=== PATIENT | male | born 1975 | race African-American/Black ===

== ENCOUNTER 2019-06-21 09:24 | Observation (INO) ==
[2019-06-21] MEDS ORDERED: ZOFRAN IV ONE (09:47)
[2019-06-21] MEDS ORDERED: MORPHINE IV ONE (09:47)
[2019-06-21] MEDS ORDERED: NS 1,000 ML IV ONE ×2 (09:47→13:36)
[2019-06-21 11:31] LABS: BILIRUBIN URINE NEGATIVE (NEGATIVE); BLOOD URINE NEGATIVE (NEGATIVE); CLARITY CLEAR (CLEAR); COLOR YELLOW; GLUCOSE URINE NEGATIVE (NEGATIVE); KETONE URINE NEGATIVE (NEGATIVE); LEUKOCYTES URINE NEGATIVE (NEGATIVE); NITRITE URINE NEGATIVE (NEGATIVE); SP GRAVITY URINE 1.015; UROBILINOGEN URINE NORMAL
[2019-06-21 11:33] LABS: BASO# 0.03 X1000 (0.0-0.2); BASO% 0.3 % (0.0-0.8); EOS# 0.14 X1000 (0.0-0.7); EOS% 1.3 % (0.0-10.0); HEMATOCRIT 31.8 % (42.0-52.0); HEMOGLOBIN 10.1 g/dL (14.0-18.0); IMM GRAN# 0.01 X1000 (0.0-0.04); IMM GRAN% 0.1 % (0.0-0.5); LYMPH# 1.01 X1000 (1.2-3.4); MCH 26.1 PG (27-31); MCHC 31.8 g/dL (33-37); MCV 82.2 FL (81-99); MONO# 0.86 X1000 (0.11-0.59); MONO% 7.7 % (1.7-9.3); NEUT# 9.13 X1000 (1.4-6.5); NEUT% 81.6 % (42.2-75.2); PLT 398 X1000 (130-400); RBC 3.87 XMIL (4.7-6.1); RDW 14.3 % (11.5-14.5); WBC 11.18 X1000 (4.8-10.8)
[2019-06-21 11:46] LABS: AGAP 13; ALBUMIN 3.8 g/dL (3.5-5.0); ALKALINE PHOSPHATASE 84 U/L (32-122); BUN 66 mg/dL (8-22); CHLORIDE 101 mmol/L (98-107); COSMO 295; CREATININE 3.1 mg/dL (0.7-1.2); ESTIMATED GFR 22; GLUCOSE 229 mg/dL (70-104); GOT 18 U/L (10-34); GPT 20 U/L (10-44); POTASSIUM 5.3 mmol/L (3.5-5.1); SODIUM 134 mmol/L (136-145); TCO2 20 mmol/L (25-35); TOTAL BILIRUBIN < 0.15 mg/dL (0.20-1.00)
[2019-06-21 11:49] LABS: LIPASE 683 U/L (13-60)
[2019-06-21 12:11] LABS: URINE BACTERIA 1+ /HFP; URINE EPITHELIAL CELLS <10 /HPF (<10); URINE SOURCE CLEAN CATCH
--- NOTE | 2019-06-21 12:42 | Diag Imaging Result Doc PS360 ---
EXAM: CT ABDOMEN/PELVIS W/O CONTRAST INDICATION: abd pain TECHNIQUE: This exam was performed using automated exposure control, adjustment of mA or kV according to patient size, and/or use of iterative reconstruction technique. COMPARISON: Images from a CT-guided renal biopsy dated 04/08/2018. FINDINGS: There is mild subsegmental atelectasis at the lung bases. There has been a prior cholecystectomy. The liver, spleen, pancreas, and adrenal glands are unremarkable. There is stable chronic perinephric renal stranding, which is often associated with chronic renal insufficiency. The kidneys are unremarkable, otherwise. Urinary bladder is unremarkable. The appendix is normal. There is no evidence of bowel wall thickening or bowel obstruction. The remainder of the GI tract is grossly unremarkable. No focal inflammatory changes, free abdominal gas, or free fluid is identified. IMPRESSION: Stable bilateral chronic perinephric stranding as described. No evidence of acute pathology by unenhanced CT. Electronically signed by Mino Rodrigues 06/21/2019 12:39 PM
[2019-06-21] MEDS ORDERED: ZOFRAN IV PRN (13:56)
[2019-06-21 14:25] LABS: HEMOGLOBIN A1C 7.9 % (4.8-6.0)
[2019-06-21] MEDS: NS 1,000 ML IV SCH ×2 (15:03→23:35)
[2019-06-21] MEDS: MORPHINE IV PRN ×2 (15:45→20:28)
[2019-06-21] MEDS: HUMULIN R (PARKWAY) SUBQ SCH ×2 (16:55→21:17)
--- NOTE | 2019-06-21 17:33 | HISTORY AND PHYSICAL ---
PRIMARY CARE PROVIDER: Sherry Padilla. CHIEF COMPLAINT: Epigastric pain with nausea for 4 days worse after eating. HISTORY OF PRESENT ILLNESS: Mr. Elsie Trivedi is a 43-year-old male he is in no acute distress, he is able answer questions appropriately. He states he has medical history of diabetes since age of 30, CKD stage 3, anemia, low vitamin D deficiency, hyperlipidemia and obesity presents here with complaints of epigastric pain with nausea for 4 days, he says it radiates into his back, it is worse after eating but otherwise no other complaints. Imaging of the pelvic and abdominal CT essentially said the pancreas was unremarkable but laboratory data that was obtained shows amylase of 476 and lipase of 683, also he does have signs of acute pancreatitis the triglycerides are only 171, he is a non alcoholic so he is not a drinker so causes really unclear at this time but will give him IV fluids and p.o. clear liquids. Will recheck amylase, lipase in the morning and see if his abdominal pain improves. PAST MEDICAL HISTORY: 1. CKD stage 3. 2. Hypertension. 3. Anemia. 4. Low vitamin D. 5. Erectile dysfunction. 6. GERD history. 7. Hyperlipidemia. 8. Diabetes mellitus type 2 p.o. medication dependent since age of 30. 9. Morbid obesity with a BMI 40.5. SURGICAL HISTORY: 1. Biopsy of kidney last year which March 2018 which showed kidney disease is due to diabetes. 2. Cholecystectomy. SOCIAL HISTORY: Quit smoking in 2009, prior to that he smoked less than a half pack per day for 20 years. He denies alcohol or illicit drug use. 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 FAMILY HISTORY: Mother had stroke at 57, she also had diabetes. Father had hyperactive thyroid. ALLERGIES: No known drug allergies. HOME MEDICATIONS: 1. Amaryl 40 mg p.o. twice daily. 2. Hydralazine 50 mg p.o. twice a day. 3. Januvia 100 mg p.o. daily. 4. Losartan hydrochlorothiazide 1 tab p.o. daily. 5. Simvastatin 40 mg p.o. nightly. 6. Sodium bicarbonate 325 mg p.o. twice a day this originally supposed to be t.i.d. but he says he only takes it twice a day. 7. Spironolactone 25 mg p.o. daily. 8. Verapamil 240 mg p.o. twice daily. REVIEW OF SYSTEMS: Fourteen point review of systems are complete and all are negative except for those mentioned above HPI. PHYSICAL EXAM: VITAL SIGNS: Temperature 97.7 degrees, heart rate 81, respiratory rate 20, blood pressure 156/86, O2 saturation 96% on room air, 274 pounds, BMI is 40.5, he is only 5 feet 9 inches tall. GENERAL: Mr. Elsie Trivedi is a 43-year-old male he is in no acute distress is able to answer questions appropriately. HEENT: Atraumatic, normocephalic. Pupils equal, round, reactive to light. Extraocular movements intact. Mucous membranes dry. NECK: Trachea midline. CARDIOVASCULAR: S1, S2, regular rate and rhythm. No rubs, gallops, murmurs, no lower extremity edema, +2 dorsalis and radial pulses, negative JVD or carotid bruit. PULMONARY: Clear to auscultation, bilateral breath sounds. No accessory muscle use or work of breathing noted. GI: Soft, tender in epigastric region, nondistended, positive bowel sounds x4. EXTREMITIES: Moves all extremities equally full range of motion. NEURO: A and O x3, follows commands, sensory is intact. SKIN: Warm, dry, intact. LABORATORY DATA: White blood cells 11,000, hemoglobin 10, hematocrit 31, platelet count 398,000. Sodium 134, potassium 5.3, BUN 66, creatinine 3.1, glucose 229, hemoglobin A1c is 7.9, bilirubin is less than 0.15, AST 18, ALT 20, albumin 3.8, total triglycerides 171, total cholesterol is 145, amylase 476, lipase 683. Urinalysis 3+ protein, 1+ bacteria, alcohol negative. IMAGING: Abdominal pelvic CT stable bilateral chronic perinephric stranding as described no evidence of acute pathology by unenhanced CT. ASSESSMENT AND PLAN: 1. Acute pancreatitis cause really is unknown, he is a little bit of leukocytosis with it, will put him on a clear liquid diet and some IV fluid hydration, will recheck amylase and lipase for in the morning and Zofran for nausea and morphine for pain control. 2. History of hypertension, continue Aldactone, verapamil. 3. Anemia stable. 4. History of gastroesophageal reflux disease, will do Prilosec but he states he has not really taken at home anymore but given his GI symptoms will do Prilosec for now. 5. Hyperlipidemia, will hold home statin. 6. Acute kidney injury on chronic kidney disease stage 3, hopefully this should improve with intravenous fluid hydration will recheck his numbers in the morning. 7. Diabetes mellitus type 2. Will do clear liquid diabetic diet, pattern blood glucoses, sliding scale insulin. 8. Deep venous thrombosis prophylaxis SCDs. Dictated by NATA Levin for Tim Zaragoza MD Addendum: Patient seen and examined by myself. Agree with NATA note. It reflects my assessment and plan. Patient is being admitted to hospital for acute pancreatitis. Will put patient NPO and will start pain medications and IV fluids as well. Will monitor patient closely. cc: NATA Levin MD [facility]
[2019-06-21] MEDS: PRILOSEC PO SCH (20:22)
[2019-06-21] MEDS: ISOPTIN SR PO SCH (20:22)
[2019-06-21] MEDS: SODIUM BICARBONATE PO SCH (20:22)
[2019-06-22] MEDS: PRILOSEC PO SCH ×2 (06:15→21:46)
[2019-06-22 06:28] LABS: BASO# 0.04 X1000 (0.0-0.2); BASO% 0.5 % (0.0-0.8); EOS# 0.24 X1000 (0.0-0.7); EOS% 3.1 % (0.0-10.0); HEMOGLOBIN 9.6 g/dL (14.0-18.0); IMM GRAN# 0.01 X1000 (0.0-0.04); IMM GRAN% 0.1 % (0.0-0.5); LYMPH# 1.29 X1000 (1.2-3.4); LYMPH% 16.8 % (20.5-51.1); MCH 25.9 PG (27-31); MCV 83.6 FL (81-99); MONO# 0.75 X1000 (0.11-0.59); MONO% 9.8 % (1.7-9.3); MPV 9.6 FL (7.4-10.4); NEUT# 5.35 X1000 (1.4-6.5); NEUT% 69.7 % (42.2-75.2); PLT 390 X1000 (130-400); RBC 3.71 XMIL (4.7-6.1); RDW 14.3 % (11.5-14.5); WBC 7.68 X1000 (4.8-10.8)
[2019-06-22] MEDS: NS 1,000 ML IV SCH ×3 (06:43→23:37)
[2019-06-22 06:44] LABS: INR 0.96; PROTIME 13.3 Seconds (11.0-16.0)
[2019-06-22] MEDS: HUMULIN R (PARKWAY) SUBQ SCH ×4 (06:47→21:45)
[2019-06-22 06:48] LABS: ALBUMIN 3.1 g/dL (3.5-5.0); CREATININE 2.5 mg/dL (0.7-1.2); MAGNESIUM 1.5 mg/dL (1.5-2.7); POTASSIUM 5.1 mmol/L (3.5-5.1); TOTAL BILIRUBIN 0.2 mg/dL (0.20-1.00)
[2019-06-22] MEDS: ISOPTIN SR PO SCH ×2 (08:42→21:45)
[2019-06-22] MEDS: ALDACTONE PO SCH (08:43)
[2019-06-22] MEDS: SODIUM BICARBONATE PO SCH ×2 (08:43→21:46)
[2019-06-22] MEDS: TYLENOL PO PRN ×2 (11:04→22:26)
--- NOTE | 2019-06-22 11:49 | PROGRESS NOTE ---
DATE: 06/22/2019 SUBJECTIVE: Patient reports abdominal pain is definitely getting better. It is still hurting, but much better than what it was at admission. OBJECTIVE: Temperature 98.5 degrees, heart rate 77, respiratory rate 20, blood pressure 156/88, O2 saturation 94% on room air. On general examination, this is a 43-year-old male, lying in bed, in no acute distress.Cardiovascular: S1, S2 heard. No murmurs, gallops, or rubs. Regular rate and rhythm. Respiratory exam clear bilaterally to auscultation. No work of breathing or using accessory muscles. Abdomen is soft. A little bit tender to palpation in the epigastric area, but no signs of peritoneal irritation. Extremities: No clubbing, cyanosis, or edema. Peripheral pulses present in both legs. Neurological: Patient is alert and oriented x3. Moves 4 extremities. LABORATORY DATA: Reviewed. Creatinine is 2.5 and yesterday it was 3.1. ASSESSMENT AND PLAN: 1. Acute pancreatitis. Clinically, this patient is improving slowly. He reports less abdominal pain. He is on a clear liquid diet. He agreed to continue with clear liquid diet for today. If he tolerates very well, then tomorrow we will switch to GI soft diet and see how he does. We will continue with IV fluids and also Zofran for nausea/vomiting and morphine for pain control. 2. Acute on chronic kidney disease. Creatinine continues to improve. I do not know at this point what is his baseline, but as we mentioned before, there is an improvement from today. We will check BMP tomorrow. We will go from there. 3. Hyperlipidemia. We will hold statins while he is here in the hospital. 4. Anemia of chronic disease, stable. We will continue to monitor CBC daily. 5. History of hypertension. Verapamil and Aldactone have been restarted. 6. Diabetes mellitus, type 2. We will continue with sliding scale insulin and Accu-Chek before meals and also at bedtime. The patient is receiving clear liquid diet. If tomorrow he reports that he tolerated it very well, we will change to diabetic diet. DISPOSITION: We will continue to monitor this patient closely. We will see what the abdominal ultrasound shows, if there are any gallstones or not. cc: Tim Zaragoza MD
--- NOTE | 2019-06-22 17:39 | Diag Imaging Result Doc PS360 ---
EXAM: US ABDOMEN-COMPLETE INDICATION: pancreatitis COMPARISON: Renal ultrasound dated 11/19/2013 FINDINGS: There has been a prior cholecystectomy. The common bile duct is normal in diameter. The liver is grossly unremarkable. Portal venous flow is hepatopetal. The pancreas is largely obscured by bowel gas. The visualized portion of the pancreatic head is unremarkable. The distal aorta is obscured. The remainder of the aorta is grossly unremarkable. The spleen is unremarkable. There are a couple of small renal cysts bilaterally. The kidneys are unremarkable, otherwise. IMPRESSION: Essentially unremarkable abdominal ultrasound. Electronically signed by Mino Rodrigues 06/22/2019 5:37 PM
[2019-06-23] MEDS: HUMULIN R (PARKWAY) SUBQ SCH ×3 (07:16→16:25)
[2019-06-23] MEDS: PRILOSEC PO SCH (07:16)
[2019-06-23 07:32] LABS: BASO# 0.03 X1000 (0.0-0.2); BASO% 0.3 % (0.0-0.8); EOS# 0.23 X1000 (0.0-0.7); EOS% 2.6 % (0.0-10.0); HEMATOCRIT 30.1 % (42.0-52.0); HEMOGLOBIN 9.2 g/dL (14.0-18.0); IMM GRAN# 0.01 X1000 (0.0-0.04); IMM GRAN% 0.1 % (0.0-0.5); LYMPH# 1.29 X1000 (1.2-3.4); LYMPH% 14.7 % (20.5-51.1); MCH 25.6 PG (27-31); MCHC 30.6 g/dL (33-37); MCV 83.8 FL (81-99); MONO# 0.93 X1000 (0.11-0.59); MONO% 10.6 % (1.7-9.3); MPV 9.9 FL (7.4-10.4); NEUT% 71.7 % (42.2-75.2); PLT 391 X1000 (130-400); RBC 3.59 XMIL (4.7-6.1); RDW 14.1 % (11.5-14.5); WBC 8.79 X1000 (4.8-10.8)
[2019-06-23] MEDS: NS 1,000 ML IV SCH ×2 (07:46→16:25)
[2019-06-23] MEDS: ISOPTIN SR PO SCH ×2 (07:48→08:44)
[2019-06-23] MEDS: ALDACTONE PO SCH ×2 (07:49→08:44)
[2019-06-23] MEDS: SODIUM BICARBONATE PO SCH (07:49)
[2019-06-23 09:02] LABS: CREATININE 2.2 mg/dL (0.7-1.2); POTASSIUM 5.1 mmol/L (3.5-5.1)
[2019-06-23 09:03] LABS: ALBUMIN 3.1 g/dL (3.5-5.0); CALCIUM 8.1 mg/dL (8.8-10.2); TOTAL BILIRUBIN 0.2 mg/dL (0.20-1.00); TOTAL PROTEIN 6.9 g/dL (6.3-8.3)
[2019-06-23 16:21] VITALS: BP 187/85
--- NOTE | 2019-06-23 19:43 | DISCHARGE SUMMARY ---
ADMISSION DATE: 06/21/2019 DISCHARGE DATE: 06/23/2019 CONSULTATIONS: None. PERTINENT PROCEDURES: 1. Abdomen and pelvis CT: Stable bilateral chronic foreign-phrenic stranding. No evidence of acute pathology. 2. Abdominal ultrasound essentially unremarkable. DISCHARGE: 1. Acute pancreatitis that has slowly improved. The patient does not really report any abdominal pain with advancement in his diet. He just states that he feels sore. I have gone over all his home medications. We have held his losartan-hydrochlorothiazide, his Januvia, and simvastatin, all of which can cause pancreatitis. We will have him follow up with his primary care physician this week, Dr. Sherry Padilla. 2. Acute on chronic kidney disease. The patient appears to be at his baseline. 3. Hyperlipidemia. Continue to hold his statin for now until he follows up with his PCP. 4. Anemia of chronic disease, stable. 5. History of hypertension. The patient is on verapamil and Aldactone which we will continue. Again, his losartan-hydrochlorothiazide has currently been discontinued. 6. Diabetes mellitus type 2. We have stopped his Januvia, and we will keep him on his glimepiride until he follows up with his PCP. HOSPITAL COURSE: Briefly, Mr. Trivedi is a 43-year-old male who carries a past medical history of chronic kidney disease stage III, hypertension, anemia, low vitamin K, erectile dysfunction, GERD, hyperlipidemia, diabetes mellitus type 2 on p.o. medication since the age of 30, and morbid obesity with a body mass index of 40.5 who reported to the ED after having complaints of epigastric pain with nausea for 4 days that radiated to his back. It was worse after eating, but no other complaints. Initial pelvic and abdominal CT said the pancreas was unremarkable. His laboratory data showed amylase of 476 and a lipase of 683. He also had signs of acute pancreatitis. Triglycerides are only 171. He is not an alcoholic. He also does not drink any alcohol. We have gone over his home medications and for now stopped his losartan- hydrochlorothiazide, Januvia, and simvastatin. His amylase and lipase have continued to trend down. We will have him follow up with his primary care provider. He is tolerating a diabetic diet without any abdominal pain. He just report some soreness now, but not like the pain he had upon admission. VITAL SIGNS AT TIME OF DISCHARGE: Temperature is 98.7 degrees, heart rate 83, respirations 20, blood pressure 187/85, and O2 is 100% on room air. DISCHARGE DIET: GI soft. He is to advance slowly as tolerated. Continue a low-fat diet until he follows up with his PCP. HOME MEDICATIONS: 1. Again, we have stopped his losartan-hydrochlorothiazide, Januvia, and simvastatin. All can cause pancreatitis. He will continue on his glimepiride 4 mg p.o. b.i.d. 2. Apresoline 50 mg p.o. b.i.d. 3. Sodium bicarbonate 325 mg p.o. b.i.d. 4. Spironolactone 25 mg p.o. daily. 5. Verapamil 240 mg p.o. b.i.d. FOLLOWUP: Mr. Trivedi is being discharged back home with self care. He is to follow up with his PCP, Dr. Sherry Padilla, this week. He has been educated to hold his losartan-hydrochlorothiazide, Januvia, and simvastatin until he follows up with Dr. Padilla as well as follow a low-fat diet. He can return to the ED or call 911 for any worsening of symptoms. Dictated by NATA Paniagua for Kyle Guadarrama MD cc: MD Sherry Welsh MD
--- NOTE | 2019-06-24 01:58 | DISCHARGE SUMMARY ---
ADMISSION DATE: 06/21/2019 DISCHARGE DATE: 06/23/2019 ADDENDUM: Patient seen and examined by myself. Full note dictated and discussed with nurse practitioner. Patient was admitted to the hospital with pancreatitis. Thankfully, this has continued to improve. On discharge, he is awake, alert. He is in no distress. cc: Kyle Guadarrama MD
--- NOTE | 2019-06-25 08:51 | PROVIDER DOCUMENTATION ---
This chart was entered by Samson Vizcarra Scribe, acting as scribe for Neo Jacob CRNP. HPI-Abdominal Pain/GI Problem - General Chief Complaint: Abdominal Pain Stated Complaint: ABD PAIN Time Seen by Provider: 06/21/19 09:52 Source: patient, family Allergies/Adverse Reactions: Patient Allergies Allergy/AdvReac Type Severity Reaction Status Date / Time No Known Allergies Allergy Verified 06/21/19 11:41 Home Medications: Home Medication List Medication Instructions Recorded Confirmed Last Taken Type Glimepiride [Amaryl] 4 mg PO BID 09/10/14 06/21/19 04/07/18 21:00 History Verapamil HCl [Verapamil ER] 240 mg PO BID 04/08/18 06/21/19 04/07/18 20:00 History Hydralazine [Apresoline] 50 mg PO BID 06/21/19 06/21/19 06/21/19 History Sodium Bicarbonate 325 mg PO BID 06/21/19 06/21/19 Unknown History Spironolactone 25 mg PO DAILY 06/21/19 06/21/19 Unknown History - History of Present Illness-ABD Nature of Presenting Problems: 43 yom presents to the ed with c/o UQ sharp stomach pain. pt states this started last couple of days . pt states taking meds but "pain kept coming back." pt states "last night was bad pain." pt having a hx of Blood Pressure problems. Abdominal Pain Onset Location: reports: other (UQ) Pain Radiation: reports: no radiation Quality of Pain: reports: sharp Severity in ED: reports: mild Onset/Duration: reports: 3 days ago Timing: reports: still present Activities at Onset: reports: light activity Exposure to sick contacts?: No Modifying Factors: improves with: lying down (pt states laying on back makes it better) Associated Symptoms: reports: denies symptoms Last BM: last night Dark Stools Present?: reports: none noticed Rectal Bleeding: reports: none Rectal Pain: reports: none Emesis Description: reports: none Bruising or Bleeding Gums?: No Similar Symptoms Previously?: No Recently seen or treated by another doctor?: No Review of Systems - Adult - REVIEW OF SYSTEMS - ADULT Constitutional: reports: no symptoms reported Eyes: reports: no symptoms reported Ears, Nose, Mouth & Throat: reports: no symptoms reported Cardiovascular: reports: no symptoms reported Respiratory: reports: no symptoms reported Gastrointestinal: reports: abdominal pain. denies: diarrhea (UQ), nausea, vomiting Genitourinary: reports: no symptoms reported Musculoskeletal: reports: no symptoms reported Integumentary: reports: no symptoms reported Neurological: reports: no symptoms reported Psychiatric: reports: no symptoms reported Endocrine: reports: no symptoms reported Hematologic/Lymphatic: reports: no symptoms reported Allergic/Immunologic: reports: no symptoms reported All Other Systems: Reviewed and Negative Past History - Adult - PAST MEDICAL HISTORY-ADULT Review of Records: reports: Old Records Reviewed, Nursing Assessment Review, Medications Reviewed, Social history reviewed & non-contributory. Major Childhood Illnesses: reports: denies history Cardiovascular: reports: HTN, other (Had normal stress test/ECHO [address] Campos) Respiratory: reports: denies history Gastrointestinal: reports: GERD Obstetrical/Gynecological: reports: denies history Genitourinary: reports: denies history Musculoskeletal: reports: denies history Neurological: reports: denies history Endocrine/Immune: reports: Diabetes Diabetes Type: Type 2 Other Conditions: reports: denies history - PRIOR SURGERIES/PROCEDURES Surgical/Procedure History: reports: cholecystectomy - IMMUNIZATION STATUS Childhood Immunizations: See Nurse Assessment Flu Vaccine: See Nurse Assessment - FAMILY HISTORY Family History: diabetes, CAD over 55 yo, CVA/TIA, HTN - SOCIAL HISTORY Smoking: quit greater than 1 year Alcohol Use Frequency: occasionally Living Situation: family Physical Exam-General - PHYSICAL EXAM-ADULT Initial Vital Signs Reviewed: Yes - CONSTITUTIONAL General Appearance: appears well, alert, no apparent distress - EYES Eyes: PERRL/EOMI - HEAD, EARS, NOSE, MOUTH & THROAT HENMT: moist mucous membranes - NECK Neck: non-tender, full range of motion - RESPIRATORY Respiratory: chest non-tender, lungs clear, normal breath sounds - CARDIOVASCULAR Cardiovascular: normal peripheral pulses, regular rate, rhythm - GASTROINTESTINAL (ABDOMEN) Abdominal Exam: normal bowel sounds. negative: guarding, rigid, rebound - LYMPHATIC Lymphatic: no adenopathy - MUSCULOSKELETAL Back Exam: no CVA tenderness Extremity: normal range of motion, non-tender, normal gait - SKIN Integumentary: normal color, normal turgor, warm/dry - NEUROLOGIC Neurologic: grossly normal - PSYCHIATRIC Psych/Mental Status: normal mood/affect, normal thought content, normal thought process, oriented x 3 Progress - PLAN OF CARE/RESULTS Progress/Plan/Lab Results: Vital Signs - 8 hr 06/21/19 09:28 Temperature 98.5 F Pulse Rate 95 H Respiratory Rate 20 Blood Pressure 172/93 O2 Sat by Pulse Oximetry 99 Orders Category Date Time Status CBC WITH DIFF [HEME] Stat Lab 06/21/19 09:33 Ordered COMPREHENSIVE METABOLIC PANEL [CHEM] Stat Lab 06/21/19 09:33 Uncollected ua [URINALYSIS PL W/POSS RFLX CULT] [URINALYSIS] Stat Lab 06/21/19 09:33 Uncollected Result Diagrams: 06/23/19 06:22 06/23/19 06:22 Departure - Departure Date of Disposition Decision: 06/21/19 Time of Disposition Decision: 08:49 DIAGNOSIS: Pneumonia Qualifiers: Pneumonia type: due to unspecified organism Laterality: unspecified laterality Lung location: unspecified part of lung Qualified Code(s): J18.9 - Pneumonia, unspecified organism Disposition: ADMITTED INPATIENT 09 Certified Medical Emergency: Emergent Condition: Stable - Critical Care Note This patient required my direct & personal management of CC.: No Attestation - Physician/ GRICEL Attestation Patient care was provided by Advanced Practice Provider:: Yes Advanced Practice Provider:: Neo Jacob Advanced Practice Provider documentation review:: The Mid-level provider documentation, treatment plan and medical decision making was reviewed by the physician who agrees with all treatment and medical decision making by the MLP. The physician spent face to face time with patient:: No Advanced Practice Provider documentation review:: Supervising physician onsite and consulted in the evaluation and care of this patient. The physician did not have a face to face encounter with the patient. This chart was documented by the indicated scribe, (Samson Vizcarra Scribe) and accurately reflects the services I performed and decisions made by me, Neo Jacob CRNP, as attested by the provider's signature.
== END 2019-06-23 16:55 | disposition home or self-care (01) ==
LOC: P.ED 09:24 → SUATTDRO 09:25 → P.MEDSURG 09:25 → INTOOBSV 09:25
PROVIDERS: ATTEND Family Medicine